=== PATIENT | female | born 1955 | race Caucasian/White ===

== ENCOUNTER → 2020-07-28 11:19 | Outpatient (POV) | payer MEDICARE, OTHER, SELFPAY | PROVIDERS: Visit Provider Dermatology | DX: Z00.00 Encounter for general adult medical examination without abnormal findings (principal) ==

== ENCOUNTER 2021-02-04 10:33 | Emergency (ER) | payer MEDICARE, OTHER, SELFPAY ==
[2021-02-04 10:43] VITALS: BMI 20.3
--- NOTE | 2021-02-04 10:43 | XR_ITS ---
PROCEDURE: XR ELBOW RT MIN 3V CLINICAL INDICATION: INJURY Pain following injury COMPARISON: CR XR FOREARM RT 2V from 02/04/2021 FINDINGS: There is a minimally displaced oblique fracture involving the neck of the radius. The distal fracture fragment is displaced medially by approximately 2 mm. There is displaced anterior fat pad consistent with hemarthrosis. The fracture does not extend into the articular surface. Mid distal aspect of the radius and ulna have an unremarkable appearance. IMPRESSION: Minimally displaced radial neck fracture with hemarthrosis Dictated by: Chay Mishra MD 02/04/2021 11:53 Chay Mishra MD in [place] 02/04/2021 11:53
--- NOTE | 2021-02-04 10:44 | XR_ITS ---
PROCEDURE: XR HUMERUS RT CLINICAL INDICATION: INJURY Pain following injury COMPARISON: No exams were available for comparison FINDINGS: Minimally displaced radial neck fracture is evident as described in the elbow report. The humerus has an unremarkable appearance. The joint spaces are well-preserved. No significant degenerative/arthritic changes. No erosive changes evident. Other findings:None. IMPRESSION: Minimally displaced radial neck fracture. Unremarkable humerus Dictated by: Chay Mishra MD 02/04/2021 11:54 Chay Mishra MD in [place] 02/04/2021 11:54
[2021-02-04 11:00] VITALS: BP 163/85; PULSE 71; RESP 20; TEMP 36.8; O2SAT 98; BMI 20.8
--- NOTE | 2021-02-04 11:17 | HMH.EDUTC ---
[place] Disposition Clinical Impression: Fracture of radial neck Qualifiers: Encounter type: initial encounter Fracture type: closed Fracture alignment: nondisplaced Laterality: right Qualified Code(s): S52.134A - Nondisplaced fracture of neck of right radius, initial encounter for closed fracture Disposition: Home, Self-Care Condition on Discharge: Good Instructions: DI for Forearm Fracture, How To Perform RICE (Rest, Ice, Compress, Elevate) Additional Instructions: *RICE, Rest the extremity, Ice 15-20 minutes 3-4 times daily, Compress- wear the jaron wrap as discussed as much as possible to help reduce swelling and pain, Elevate the extremity when at rest *Jaron wrap/Long arm splint is for support and help control swelling, Be sure that is not to tight but not to loose either *Elevate when resting this will help with swelling and pain *Ibuprofen 600-800mg every 6-8 hours as needed for pain an inflammation. If need something more can take Tylenol in between doses of Ibuprofen to help Immediately follow up with your family doctor for new or worsening of symptoms, or no noticeable improvement over the next 3-[address] Bhandari office will call you with appointment if you have not heard from them by tomorrow you call them Return if needed Straight to ER if any life threatening symptoms Follow up with Family Doctor if needed Straight to ER if any life threatening symptoms Referrals: Savi Rendon [Primary Care Provider] - As needed Rocio Bhandari MD [Physician] - As needed (office will call you with appointment) Time of Disposition: 11:27 Medical Decision Making - Seven Inquiry Pt receiving controlled substance: No Seven was queried for this patient: No Vital Signs: 02/04/21 11:00 02/04/21 11:30 Temperature 98.2 F 98.2 F Temperature Source Oral Pulse Rate 71 Pulse Rate [Left Brachial] 71 Respiratory Rate 20 20 Blood Pressure 163/85 H Blood Pressure [Left Arm] 163/85 H Blood Pressure Mean [Left Arm] 111 Blood Pressure Source [Left Arm] Automatic Cuff Blood Pressure Position [Left Arm] Sitting 02 Sat by Pulse Oximetry 98 Oxygen Delivery Method Room Air - Radiology Data #1 Image(s): Forearm Image Reviewed: Yes I reviewed the patient's radiology image Radial neck fracture #2 Image(s): Elbow Image Reviewed: Yes I reviewed the patient's radiology image radial neck fracture #3 Image(s): Humerus Image Reviewed: Yes I reviewed the patient's radiology image Radial neck fracture noted - Physician Consults Physician Consulted: Thony Time: 11:15 Reason -: Orthopedic Eval/Care Comment/Response: Called Dr Bhandari office and informed them of finding on xray Advised that Dr Bhandari in surgery will notify her when she gets out of surgery and they will call with appointment [place] HPI - General Stated complaint: fell a/o 02/03 1400 hurt right arm Time Seen by Provider: 02/04/21 11:17 Mode of Arrival: Ambulatory Source of Information: Patient Limitations: No Limitations Description of Symptoms (Recalled from Triage Doc. by RN): PATIENT C/O INJURY TO RIGHT ELBOW AREA AFTER TRIPPING OVER A TROUGH AND FALLING YESTERDAY HEENT Symptoms (Recalled from RN notes): No Resp Symptoms (Recalled from RN notes): No Skin Symptoms (Recalled from RN notes): No MS Symptoms (Recalled from RN notes): Yes Functional Status (Recalled from RN notes): WNL - History of Present Illness Provider Complaint: Patient was playing with her grandchild yesterday when she tripped and fell and landed on her right arm State that ever since she has been having some pain in her elbow area when she tries to move or turn her arm States that she thought she may have sprain it but today it was still hurting so she come in to get it checked - Related Data Home Medications Medication Instructions Recorded Confirmed Metoprolol Tartrate [Lopressor 50 mg PO BID 02/04/21 02/04/21 50mg tablet] Trazodone HCl 100 mg PO HS 04
[2021-02-04 11:30] VITALS: BP 163/85; PULSE 71; RESP 20; TEMP 36.8; O2SAT 98
== END 2021-02-04 11:35 | disposition home or self-care (01) ==
PROVIDERS: Emergency Provider Nurse Practitioner; PCP Family Medicine
DX: S52.131A Displaced fracture of neck of right radius, initial encounter for closed fracture (principal); W01.198A Fall on same level from slipping, tripping and stumbling with subsequent striking against other object, initial encounter; Y92.017 Garden or yard in single-family (private) house as the place of occurrence of the external cause; I10 Essential (primary) hypertension; M81.0 Age-related osteoporosis without current pathological fracture; F17.210 Nicotine dependence, cigarettes, uncomplicated; Z88.5 Allergy status to narcotic agent; Z79.899 Other long term (current) drug therapy
CPT/HCPCS: 29105; 73060; 73080; 73090; 99202; G0463

== ENCOUNTER → 2021-02-12 09:24 | Outpatient (CLI) | payer MEDICARE, OTHER, SELFPAY ==
--- NOTE | 2021-02-12 09:30 | XR_ITS ---
PROCEDURE: XR FOREARM RT 2V CLINICAL INDICATION: RT radial head fracture Follow-up fracture COMPARISON: CR XR FOREARM RT 2V from 02/04/2021 FINDINGS: Study is obtained with a posterior splint in place. There is mildly displaced radial neck fracture with 3 mm lateral 2 mm dorsal displacement the proximal fracture fragment. No other significant anomalies are evident. The joint spaces are well-preserved. No significant degenerative/arthritic changes. No erosive changes evident. Other findings:None. IMPRESSION: No change mildly displaced radial neck fracture Dictated by: Chay Mishra MD 02/12/2021 10:47 Chay Mishra MD in [place] 02/12/2021 10:47
== END ==
PROVIDERS: PCP Family Medicine; Visit Provider Orthopaedic Surgery
DX: S52.134A Nondisplaced fracture of neck of right radius, initial encounter for closed fracture (principal)
CPT/HCPCS: 73090

== ENCOUNTER → 2021-02-15 10:27 | Outpatient (CLI) | payer MEDICARE, OTHER, SELFPAY ==
[2021-02-15 11:05] LABS: Basophils # 0.1 K/mm3 (0-0.2); Basophils % 1.1 % (0.1-2.0); Eosinophils # 0.2 K/mm3 (0.0-0.4); Eosinophils % 2.4 % (0.1-12.0); Hematocrit 40.9 % (37.0-47.0); Hemoglobin 13.7 g/dL (12.2-16.2); Lymphocytes # 2.1 K/mm3 (0.7-4.5); Mean Corpuscular HGB Conc 33.6 g/dL (31.8-35.4); Mean Corpuscular Hemoglobin 32.4 pg (27.0-31.2); Mean Corpuscular Volume 96.6 fl (81-99); Mean Platelet Volume 10.2 fl (7.4-10.4); Monocytes # 0.4 K/mm3 (0.1-1.0); Monocytes % 6.2 % (1.7-9.3); Neutrophils # 4.2 K/mm3 (1.8-7.8); Neutrophils % 60.3 % (37.0-80.0); Platelet Count 225 K/mm3 (142-424); Red Blood Count 4.24 M/mm3 (4.20-5.40); Red Cell Distribution Width 12.7 % (11.5-17.5)
[2021-02-15 11:45] LABS: Chloride 101 mmol/L (98-107)
[2021-02-15 11:46] LABS: Potassium 4.3 mmoL/L (3.5-5.1); Sodium 136 mmol/L (136-145)
[2021-02-15 11:49] LABS: Anion Gap 10.3 mEq/L (5-15); Blood Urea Nitrogen 17 mg/dl (7-17); Carbon Dioxide 29 mmol/L (22.0-30.0); Estimated Glomerular Filt Rate 72 ml/min (>60); GFR (African American) 87 ML/MIN (>60); Glucose 98 mg/dl (74-100)
[2021-02-15 11:52] LABS: Coronavirus 19 IgG Antibody Positive (Negative); Coronavirus 19 IgM Antibody Negative (Negative)
== END ==
PROVIDERS: Visit Provider Orthopaedic Surgery
DX: S52.133A Displaced fracture of neck of unspecified radius, initial encounter for closed fracture (principal); Z01.818 Encounter for other preprocedural examination; Z20.822 Contact with and (suspected) exposure to COVID-19
CPT/HCPCS: 36415; 80048; 85025; 86328

== ENCOUNTER 2021-02-16 09:19 | Day surgery (SDC) | payer MEDICARE, OTHER, SELFPAY ==
[2021-02-12 15:08] VITALS: BMI 21.1
[2021-02-16] VITALS (9 sets, daily range): BP systolic 108–138; BP diastolic 55–83; PULSE 54–71; RESP 15–18; TEMP 36.2–36.4; O2SAT 93–99
--- NOTE | 2021-02-16 10:29 | P.PN_ITS ---
[facility] Anesthesia Checklist - Patient Identification Patient Identification: Arm Band - Structural Data Admitted From: Home Planned Operative Procedure/s: ORIF Right Radial Neck Fx Consent for Planned Operative Procedure(s) Verified: Yes Verified Documents: Surgical Consent, History and Physical - NPO Status Verified Time NPO: 00:00 - Additional verifications Anesthesia Reactions: No Hx Blood Transfusions: No Blood Transfusion Reaction: No - Airway Assessment C-Spine Mobility Assessed: Yes (mp2) TMJ Mobility Assessed: Yes Dentition: Good Dentition - Neurological Assessment Level of Consciousness: Awake, Alert - Anesthesia Plan Anesthesia Risk discussed: Yes Anesthesia Plan: Verified ASA Class: II Anesthesia Type: General w/block (supraclavicular nerve block. Risks/benefits explained, pt verbalizes understanding) [facility] History I have reviewed the patient's past medical history: Yes Medical History: Reports:: Cancer, Osteoporosis Denies:: Diabetes Mellitus Type 1, Diabetes Mellitus Type 2, MRSA, Seizures *Have you ever received a pneumonia vaccine?: Yes *Have you received a flu vaccine this season?: Yes Other Medical History: Reports: Arthritis, Osteoporosis, Other. Denies: Blood Transfusion Reaction Anesthesia experience/problems:: nac Laterality Cases: Bilateral: Cataract Other Surgeries: Yes: Cardiac Surgery Amputation: No Fractures: No - *Social History Last grade of school completed: High school graduate Smoking Status: Current every day smoker Tobacco Type: cigarettes # Packs/Day (cigarettes): 1 Alcohol Intake: never Substance Use Type: denies use *Occupational Status:: other Housing: house *Travel in the last 8 weeks: None Family Hx:: Coronary Artery Disease, Cancer
--- NOTE | 2021-02-16 13:39 | XR_ITS ---
PROCEDURE: XR ELBOW RT 2V CLINICAL INDICATION: ORIF RT ELBOW FX COMPARISON: No exams were available for comparison FINDINGS: Fluoroscopy time: 1.1 minute. Multiple images submitted with the C-arm demonstrates lateral bone plate placed at the proximal radius stabilizing the radial neck fracture with good alignment. IMPRESSION: Good alignment status post ORIF radial neck fracture Dictated by: Chay Mishra MD 02/16/2021 18:12 Chay Mishra MD in [place] 02/16/2021 18:12
--- NOTE | 2021-02-16 14:07 | P.PN_ITS ---
[facility] Anesthesia Record Part I Intake, IV Amount: 800 Estimated blood loss (mL): 50 Urine output (mL): 0 Blood Pressure: 117/65 SaO2: 95 Pulse Rate: 71 Respiratory Rate: 15 Temperature: 97.1 F Patient is:: Awake, Stable Stable to PACU at:: 14:03
--- NOTE | 2021-02-16 14:28 | XR_ITS ---
PROCEDURE: XR ELBOW RT 2V CLINICAL INDICATION: ORIF Follow-up ORIF/fracture COMPARISON: CR XR ELBOW RT MIN 3V from 02/04/2021 FINDINGS: AP and lateral views demonstrate a lateral bone plate having been placed at the proximal radius with good alignment of the radial neck fracture. There is a posterior splint in place. The joint spaces are well-preserved. No significant degenerative/arthritic changes. No erosive changes evident. Other findings:None. IMPRESSION: Good alignment status post radial neck fracture ORIF Dictated by: Chay Mishra MD 02/16/2021 15:19 Chay Mishra MD in [place] 02/16/2021 15:19
--- NOTE | 2021-02-16 23:12 | HMH.OPNOTE ---
Date of procedure: 02/16/21 Pre-op Diagnosis:: R radial neck fracture Post-op Diagnosis:: R radial neck fracture Procedure performed:: open reduction internal fixation (ORIF) R radial neck fracture Surgeon:: Rocio Bhandari MD Rugby League Footballer(s):: Celeste Srivastava AVIATION ELECTRONICS TECHNICIAN:: Yong Dumont Anesthesia: MAC, regional (supraclavicular nerve block) Estimated blood loss (mL): 20 Clinical Note:: 65-year-old [id number] female who sustained an injury to the right elbow on 02/03/2021 while playing with her granddaughter. She tripped over some debris in a gutter and fell onto the outstretched right arm, with immediate pain in the elbow. She was seen in the emergency department where a radial neck fracture was diagnosed and she was placed into a splint. No open wounds around the elbow, no numbness or tingling in the arm. She has not injured this arm previously and has had no prior surgeries on this arm. We tried initial conservative treatment with immobilization in a splint for a week, but alignment appeared slightly worsened at subsequent follow-up. Specifically, angulation on AP view is around 40 degrees, which I believed to be outside of the acceptable range for continued nonoperative treatment. I recommend surgical fixation, particularly ORIF with plate and screws. I believe this will improve the alignment and overall long-term function and pain level for the patient, who is healthy and very active. This is also her dominant arm. She is a non-smoker and is in good health. I discussed the risks and benefits of surgery, which include but are not limited to: bleeding, infection, neurovascular damage, risk of heterotopic ossification, postoperative stiffness, radial ulnar synostosis, nonunion, malunion, and need for revision surgery with possible conversion to radial head replacement in the future. The patient vocalized understanding and provided informed consent for the procedure. Operative findings:: IMPLANTS: [employer] PROTEAN R radial head plate 6 screws -- 2.7mm non-locking x2/locking x1; 2.3mm locking x3 Operative note:: The patient was identified in preoperative holding and the right elbow signed by myself. Consent was reviewed and verified with the patient, all questions answered. Anesthesia discussed options with the patient, who chose peripheral nerve block with sedation. Supraclavicular nerve block was performed on the right upper extremity in pre-operative holding by anesthesia. The patient was then taken to the operating room, where she was placed supine on the operative table and the right upper extremity placed on an attached hand table. All bony prominences on the left upper and bilateral lower extremities were well-padded. 1 g cefazolin was infused intravenously and sedation was administered. Once the patient was asleep, splint was removed from the right arm and it was prepped and draped in the usual sterile fashion. Once the arm was draped, a sterile tourniquet was placed on the upper right arm. Timeout was then performed, identifying the correct patient, correct procedure, and correct site. The procedure was begun by elevating the right arm for 3 minutes and then elevating the tourniquet to 250 mmHg. Esmarch was not used in order to allow some blood to remain in the vasculature and increase visualization of the penetrating veins along the desired surgical interval. Next, an oblique incision was made over the lateral aspect of the right elbow, centered over the lateral column of the humerus and the radiocapitellar joint. This measured approximately 5 cm long. Skin was incised only; after this subcutaneous tissue was bluntly dissected with tenotomy scissors, spreading tissue until the common extensor origin on the lateral epicondyle was identified. The Argueta approach was utilized, and the intermuscular plane between the EDC and ECRL was developed. Blunt retractor was used to aid with exposure, and care was taken to minimize the
[2021-02-18 07:38] VITALS: BP 127/73; PULSE 62; TEMP 36.2
--- NOTE | 2021-02-18 07:38 | P.PN_ITS ---
[facility] Anesthesia Record Part II Discharge Time: 14:30 Destination: Surgical Day Care (OP Surgery) PACU nurse assessment reviewed?: Yes Patient Condition:: Good Anesthesia Complications:: None Swallowing reflex intact?: Yes Cyanosis?: No Blood Pressure: 127/73 Pulse Rate: 62 Temperature: 97.1 F Mental Status: Alert & Oriented Pain level:: 0 Nausea and/or vomitting:: None Intake, IV Amount: 800
== END 2021-02-16 16:35 | disposition home or self-care (01) ==
LOC: OR 09:23
PROVIDERS: PCP Family Medicine; Visit Provider Orthopaedic Surgery
PROC: (CPT 25515; principal; 2021-02-16 11:00)
DX: S52.121A Displaced fracture of head of right radius, initial encounter for closed fracture (principal); W01.0XXA Fall on same level from slipping, tripping and stumbling without subsequent striking against object, initial encounter
CPT/HCPCS: 24665; 73070; 76000; 96374; C1713; C1776

== ENCOUNTER → 2021-02-26 10:16 | Outpatient (CLI) | payer MEDICARE, OTHER, SELFPAY ==
--- NOTE | 2021-02-26 10:21 | XR_ITS ---
PROCEDURE: XR ELBOW RT 2V CLINICAL INDICATION: post op: Rt radial head fracture COMPARISON: CR XR ELBOW RT MIN 3V from 02/04/2021 CR XR ELBOW RT 2V from 02/16/2021 FINDINGS: Lateral bone plate remains in place stabilizing the radial neck fracture which is in good alignment. Fracture line is still visible. Posterior splint is removed. The joint spaces are well-preserved. No significant degenerative/arthritic changes. No erosive changes evident. Other findings:None. IMPRESSION: Good alignment status post radial neck fracture. Dictated by: Chay Mishra MD 02/26/2021 10:48 Chay Mishra MD in [place] 02/26/2021 10:48
== END ==
PROVIDERS: PCP Family Medicine; Visit Provider Orthopaedic Surgery
DX: S52.131A Displaced fracture of neck of right radius, initial encounter for closed fracture (principal)
CPT/HCPCS: 73070

== ENCOUNTER 2021-02-26 11:54 | Outpatient (RCR) | payer MEDICARE, OTHER, SELFPAY | END 2021-02-26 12:20 | disposition home or self-care (01) | LOC: OT 11:54 | PROVIDERS: Visit Provider Orthopaedic Surgery | DX: S52.134A Nondisplaced fracture of neck of right radius, initial encounter for closed fracture (principal) | CPT/HCPCS: 97763 ==

== ENCOUNTER → 2021-03-15 09:49 | Outpatient (CLI) | payer MEDICARE, OTHER, SELFPAY ==
--- NOTE | 2021-03-15 09:52 | XR_ITS ---
PROCEDURE: XR ELBOW RT MIN 3V CLINICAL INDICATION: s/p RT radial neck fracture COMPARISON: CR XR ELBOW RT MIN 3V from 02/04/2021 CR XR ELBOW RT 2V from 02/16/2021 CR XR ELBOW RT 2V from 02/26/2021 FINDINGS: Status post ORIF radial neck fracture with lateral bone plate and good alignment. Callus formation is developing. Fracture line is still visible. The joint spaces are well-preserved. No significant degenerative/arthritic changes. No erosive changes evident. Other findings:None. IMPRESSION: S/p ORIF healing radial neck fracture with good alignment Dictated by: Chay Mishra MD 03/15/2021 10:34 Chay Mishra MD in [place] 03/15/2021 10:34
== END ==
PROVIDERS: PCP Family Medicine; Visit Provider Orthopaedic Surgery
DX: S52.134A Nondisplaced fracture of neck of right radius, initial encounter for closed fracture (principal)
CPT/HCPCS: 73080

== ENCOUNTER 2021-04-29 11:00 | Outpatient (RCR) | payer MEDICARE, OTHER, SELFPAY ==
--- NOTE | 2021-03-01 15:04 | HMH.OTOPEV ---
OT Inpatient Evaluation Rehab OT Outpatient Eval Start: 03/01/21 14:46 Freq: Status: Active Protocol: Document 03/01/21 14:46 FRANCHESCASTEVIE (Rec: 03/01/21 15:04 [id number]) Electronically Signed By Breanna Grijalva OT 03/01/21 14:46 Outpatient Therapy Subjective History Subjective History Date of procedure: 02/16/21 Pre-op Diagnosis:: R radial neck fracture Post-op Diagnosis:: R radial neck fracture Procedure performed:: open reduction internal fixation (ORIF) R radial neck fracture Surgeon:: Rocio Bhandari MD Grid Maker(s):: Celeste Srivastava PRICE CHANGER:: Yong Dumont Anesthesia: MAC, regional ( supraclavicular nerve block) Estimated blood loss (mL): 20 Clinical Note:: 65-year-old right-hand- dominant female who sustained an injury to the right elbow on 02/03/2021 while playing with her granddaughter. She tripped over some debris in a gutter and fell onto the outstretched right arm, with immediate pain in the elbow. She was seen in the emergency department where a radial neck fracture was diagnosed and she was placed into a splint. No open wounds around the elbow, no numbness or tingling in the arm. She has not injured this arm previously and has had no prior surgeries on this arm. We tried initial conservative treatment with immobilization in a splint for a week, but alignment appeared slightly worsened at subsequent follow-up. Specifically, angulation on AP view is around 40 degrees, which I believed to be outside of the acceptable range for c
--- NOTE | 2021-04-02 12:10 | HMH.RHREAS ---
Rehab Reassessment Rehab OP Re-assessment Start: 04/02/21 11:48 Freq: Status: Active Protocol: Document 04/02/21 11:48 BRENDA (Rec: 04/02/21 11:53 [facility] [id number]) Electronically Signed By Breanna Grijalva OT 04/02/21 11:48 Rehab Re-assessment Subjective Subjective My elbow is feeling better. Objective Objective Notes Since SOC, Patient has participated well in skilled OP OT services for s/p R radial head fx with hinged elbow brace locked at 90 degrees til 4 weeks per protocol. Patient is currently 6 weeks out and will currently be weaning off hinged elbow brace 3-4 hours at a time while at home. Patient has been educated to continue to wear brace out in public for protection. Manual therapeutic task completed for gentle stretching/massage to improve AROM. Thera exer tasks completed for improving elbow and cv rn strength. Thera act tasks completed to improve endurance and overall movement of AROM/AAROM. Modalities as appropriate to decrease pain. Assessment Progress Assessment Progressing as Expected Assessment Notes Evaluation on 03/01/21 3/10 pain at worst in elbow R elbow ext:50 R elbow flex:122 pronation:90 supination:50 2+/5 elbow strength throughout L cv rn strength:40# R cv rn strength: 20# Re-assessment on 04/02/21 0/10 pain at worst R elbow ext:20 R elbow flex:132 R pronation: 90 R supination: 60 -4/5 elbow strength throughout R cv rn strength:30 L cv rn strength:50 Patient goals met All STGs met. Upgraded goals. Goals Not Met N/a Revised Goals Re-assessment on 04/02/21 0/10 pain at worst
== END 2021-04-29 11:05 | disposition home or self-care (01) ==
LOC: OT 11:00
PROVIDERS: PCP Family Medicine; Visit Provider Orthopaedic Surgery
DX: S52.134D Nondisplaced fracture of neck of right radius, subsequent encounter for closed fracture with routine healing (principal)
CPT/HCPCS: 97010; 97014; 97035; 97110; 97140; 97164; 97165; 97530; G0283

== ENCOUNTER → 2021-04-30 09:14 | Outpatient (CLI) | payer MEDICARE, OTHER, SELFPAY ==
--- NOTE | 2021-04-30 09:19 | XR_ITS ---
PROCEDURE: XR ELBOW RT MIN 3V CLINICAL INDICATION: s/p ORIF R radial neck fracture COMPARISON: CR XR ELBOW RT MIN 3V from 02/04/2021 CR XR ELBOW RT 2V from 02/16/2021 CR XR ELBOW RT 2V from 02/26/2021 CR XR ELBOW RT MIN 3V from 03/15/2021 FINDINGS: Lateral bone plate once again noted at the proximal radius region with multiple cortical screws not significantly changed. There is good alignment of the proximal radial fracture. No other significant anomalies. Other findings:None. IMPRESSION: No change good alignment proximal radial fracture/ORIF Dictated by: Chay Mishra MD 04/30/2021 10:02 Chay Mishra MD in [place] 04/30/2021 10:02
--- NOTE | 2021-04-30 10:29 | XR_ITS ---
PROCEDURE: XR WRIST RT MIN 3V CLINICAL INDICATION: RT wrist pain COMPARISON: No exams were available for comparison FINDINGS: No fracture or dislocation. No lytic or blastic change. There is normal mineralization. The joint spaces are well-preserved. No significant degenerative/arthritic changes. No erosive changes evident. Other findings:None. IMPRESSION: No acute findings. Dictated by: Chay Mishra MD 04/30/2021 11:56 Chay Mishra MD in [place] 04/30/2021 11:56
== END ==
PROVIDERS: PCP Family Medicine; Visit Provider Orthopaedic Surgery
DX: S52.133A Displaced fracture of neck of unspecified radius, initial encounter for closed fracture (principal); M25.531 Pain in right wrist
CPT/HCPCS: 73080; 73110

== ENCOUNTER → 2021-05-13 12:38 | Outpatient (CLI) | payer MEDICARE, OTHER, SELFPAY ==
--- NOTE | 2021-05-13 12:39 | MR_ITS ---
PROCEDURE INFORMATION: Exam: MR Right Upper Extremity Joint Without Contrast; Wrist Exam date and time: 05/13/2021 12:39 PM Age: 65 years old Clinical indication: Pain; Wrist; Right; Additional info: Evaluate for a cyst/ tumor. Knot on anterior ulnar aspect of wrist, fall 3 months ago, painful to touch, marker placed on wrist. TECHNIQUE: Imaging protocol: MR of the Right upper extremity without contrast. Exam focused on the wrist. COMPARISON: 1. CR XR WRIST RT MIN 3V 04/30/2021 10:53 AM 2. CR XR FOREARM RT 2V 02/12/2021 9:38 AM 3. CR XR FOREARM RT 2V 02/04/2021 10:50 AM FINDINGS: Limitations: Motion artifact. Bones and cartilage: There is no acute fracture or dislocation. No aggressive bone lesions are present. Joint spaces: There is moderate primary osteoarthritis of the thumb carpometacarpal joint. Mild effusions involve the intercarpal and distal radioulnar joints. Scapholunate ligament: Unremarkable. No tear. Lunotriquetral ligament: Unremarkable. No tear. Triangular fibrocartilage complex: Unremarkable. No tear. Flexor compartment tendons: Unremarkable. No tear. Extensor compartment tendons: Trace tenosynovitis involves the tendons of the second extensor compartment (extensor carpi radialis longus, extensor carpi radialis brevis) and fourth extensor compartment (extensor digitorum, extensor indicis). Muscles: Unremarkable. No acute abnormality. Soft tissues: The skin marker overlies the pisiform bone along the volar ulnar side of the wrist. Between the pisiform bone in the skin marker there is intermediate density soft tissue in the subcutaneous fat that has a nonspecific appearance. IMPRESSION: 1. Marker indicating the symptomatic region along the volar ulnar aspect of the wrist corresponds to nonspecific intermediate density soft tissue between the pisiform bone and skin. In the setting of prior trauma, this could represent posttraumatic changes of the soft tissues. There is no underlying fracture of the pisiform bone. 2. Moderate primary osteoarthritis of the thumb carpometacarpal joint. 3. Trace tenosynovitis involving the tendons of the second and fourth extensor compartments.
== END ==
PROVIDERS: PCP Family Medicine; Visit Provider Orthopaedic Surgery
DX: M25.531 Pain in right wrist (principal)
CPT/HCPCS: 73221

== ENCOUNTER → 2021-06-29 10:45 | Outpatient (POV) | payer MEDICARE, OTHER, SELFPAY | PROVIDERS: Visit Provider Dermatology | DX: Z00.00 Encounter for general adult medical examination without abnormal findings (principal) ==

== ENCOUNTER → 2022-04-12 07:56 | Outpatient (POV) | payer MEDICARE, OTHER, SELFPAY | PROVIDERS: Visit Provider Dermatology | DX: Z00.00 Encounter for general adult medical examination without abnormal findings (principal) ==

== ENCOUNTER → 2022-07-12 12:14 | Outpatient (CLI) | payer MEDICARE, OTHER, SELFPAY | PROVIDERS: PCP Family Medicine; Visit Provider Internal Medicine Gastroenterology | DX: Z01.818 Encounter for other preprocedural examination (principal); Z20.822 Contact with and (suspected) exposure to COVID-19; Z12.11 Encounter for screening for malignant neoplasm of colon | CPT/HCPCS: C9803; U0003; U0005 ==

== ENCOUNTER 2022-07-14 08:21 | Day surgery (SDC) | payer MEDICARE, OTHER, SELFPAY ==
[2022-07-11 13:07] VITALS: BMI 22.1
[2022-07-14 08:41] VITALS: BP 178/84; PULSE 65; RESP 17; TEMP 36.7; O2SAT 98
[2022-07-14 09:24] VITALS: O2SAT 98
--- NOTE | 2022-07-14 09:41 | HMH.SCOPE ---
Procedure: Date: 07/14/22 Patient Date of :: 1955 Procedure Performed:: Colonoscopy with polypectomy with snare Indications:: +Cologuard Performing Provider:: Clarence Jacobson MD Referring Provider:: Savi Rendon Sedation:: Propofol Procedure:: After placing the patient in the left lateral decubitus position, the colonoscopy was gently inserted into the rectum and under direct visualization advanced to the cecum which was identified by transillumination in the right lower quadrant, identification of the ileocecal valve, appendiceal orifice, and cecal strap. Color, texture, mucosa, and anatomy of the colon were carefully examined with the scope. Findings:: Anal canal: normal Rectum: normal Sigmoid colon: normal without polyps or inflammatory changes, small 0.3 cm polyp identified and removed with snare. Descending colon: normal without polyps or inflammatory changes Splenic flexure: normal Transverse colon: normal without polyps or inflammatory changes Hepatic flexure: normal Ascending colon: normal without polyps or inflammatory changes Cecum: normal Terminal ileum: not visualized Specimens:: Sigmoid polyp Recommendations:: Follow up exam in about FIVE years or so Complications:: None Estimated blood obtained (mL): 0
[2022-07-14 09:47] VITALS: BP 130/71; PULSE 64; RESP 18; TEMP 36.1; O2SAT 97
[2022-07-14 10:00] VITALS: BP 139/76; PULSE 60; RESP 18; O2SAT 95
[2022-07-14 10:10] VITALS: BP 155/81; PULSE 62; RESP 18; O2SAT 96
--- NOTE | 2022-07-14 13:50 | EXP.ANES.CKL ---
PFSH PFS Medical History Anxiety Breast cancer Bronchitis Cataract Heart murmur Hemorrhoid History of back pain History of cataract HTN (hypertension) Hx of mitral valve disease Osteoarthritis Pneumonia Scoliosis Sinus headache Skin cancer Sleep apnea Urinary tract infection Surgical History History of partial hysterectomy Hx of appendectomy Hx of chest tube placement Hx of elbow surgery Hx of shoulder surgery Hx of tubal ligation Family History Father Heart attack Mother COPD (chronic obstructive pulmonary disease) Social History Smoking Status: Current every day smoker tobacco type: cigarettes packs per day: 1 years smoked: 40 smoking status stop date: 2019 alcohol intake: never substance use type: denies use current occupational status: retired Travel in the last 8 weeks: None housing: house caffeine: Yes [facility] Anesthesia Checklist Patient Identification Patient Identification: Arm Band and Family Structural Data Admitted From: Direct Admit Planned Operative Procedure/s: colonoscopy Consent for Planned Operative Procedure(s) Verified: Yes Verified Documents: Surgical Consent NPO Status Verified Time NPO: 00:00 Additional verifications Anesthesia Reactions: No Hx Blood Transfusions: No Blood Transfusion Reaction: No Cardiovascular Assessment Heart Sounds: S1 & S2 Airway Assessment Dentition: Good Dentition Neurological Assessment Level of Consciousness: Awake, Alert, Appropriate and Follows Commands Hx Seizures: No Genitourinary Assessment Voided functional tester typewriters to O.R.: Yes Anesthesia Plan Anesthesia Risk discussed: Yes ASA Class: II Anesthesia Type: MAC
== END 2022-07-14 10:30 | disposition home or self-care (01) ==
PROVIDERS: PCP Family Medicine; Visit Provider Internal Medicine Gastroenterology
PROC: 0DJD8ZZ Inspection of Lower Intestinal Tract, Via Natural or Artificial Opening Endoscopic (ICD-10-PCS; CPT 45378; principal; 2022-07-14 09:30)
DX: R19.5 Other fecal abnormalities (principal); K63.5 Polyp of colon; Z79.899 Other long term (current) drug therapy; Z72.0 Tobacco use
CPT/HCPCS: 45385; 88305

== ENCOUNTER 2022-09-03 10:45 | Emergency (ER) | payer MEDICARE, OTHER, SELFPAY ==
--- NOTE | 2022-09-03 11:04 | EXP.UTC ---
Discharge Plan Disposition Patient Disposition: Home, Self-Care Condition: Good Prescriptions Prescriptions: New phenazopyridine [Pyridium] 200 mg tablet 200 mg PO Q8H Qty: 6 0RF nitrofurantoin monohyd/m-cryst [Macrobid] 100 mg Capsule 100 mg PO BID Qty: 10 0RF Rx Instructions: must administer with a meal/food ondansetron 4 mg Tablet,Disintegrating 4 mg PO Q8H PRN (Reason: Nausea) Qty: 12 0RF No Action trazodone 100 MG tablet 100 mg PO HS metoprolol tartrate 50 MG tablet 50 mg PO DAILY venlafaxine 75 MG tablet extended release 24hr 75 mg PO DAILY anastrozole 1 mg Tablet 1 mg PO DAILY Referrals Follow up/Referrals: Savi Rendon [Primary Care Provider] - See instructions Activity Restrictions/Add. Instructions Additional Instructions/Restrictions: Drink plenty of fluids. Take tylenol or ibuprofen for pain or fever. Take the medications as directed. Follow up with your regular doctor. GO TO THE ER FOR ANY WORSENING SYMPTOMS The pyridium will make your urine turn orange, this is an expected side effect. It will stain your clothes if it comes into contact with them. We will culture the urine. That will tell what bacteria is causing your infection and which antibiotics will treat it best. Sometimes the first antibiotic we prescribe turns out to not work against different bacteria. So, make sure you follow up within 3 days if you are not getting better. Clinical Impressions Clinical Impression: UTI (urinary tract infection) Instructions Patient Instructions: Urine Culture, DI for Urinary Tract Infection (UTI), Phenazopyridine Discharge ED Provider: Andrzej Ruiz [facility] General Stated complaint: possible UTI Time Seen by Provider: 09/03/22 11:04 History of Present Illness Provider Complaint: She states that for the past 2 days she has been having worsening dysuria, frequency, and low back pain. She states that she has a UTI. Related Data Home Medications Medication Instructions Recorded Confirmed metoprolol tartrate 50 mg tablet 50 mg PO DAILY MITRAL VALVE 02/04/21 07/14/22 trazodone 100 mg tablet 100 mg PO HS Insomnia 02/04/21 07/14/22 venlafaxine 75 mg tablet,extended 75 mg PO DAILY Anxiety 02/04/21 07/14/22 release 24 hr anastrozole 1 mg tablet 1 mg PO DAILY BREAST CANCER 07/11/22 07/14/22 Previous Rx's Medication Instructions Recorded nitrofurantoin 100 mg PO BID #10 caps 09/03/22 monohydrate/macrocrystals 100 mg capsule (Macrobid) ondansetron 4 mg disintegrating 4 mg PO Q8H PRN Nausea #12 tabs 09/03/22 tablet phenazopyridine 200 mg tablet 200 mg PO Q8H 6 doses #6 tabs 09/03/22 (Pyridium) Allergies Allergy/AdvReac Type Severity Reaction Status Date / Time codeine Allergy NAUSEA / Verified 09/03/22 11:17 VOMITING PFSH PFSH Medical History Anxiety Breast cancer Bronchitis Cataract Heart murmur Hemorrhoid History of back pain History of cataract HTN (hypertension) Hx of mitral valve disease Osteoarthritis Pneumonia Scoliosis Sinus headache Skin cancer Sleep apnea Urinary tract infection Surgical History History of partial hysterectomy Hx of appendectomy Hx of chest tube placement Hx of elbow surgery Hx of shoulder surgery Hx of tubal ligation Family History Father Heart attack Mother COPD (chronic obstructive pulmonary disease) Social History Smoking Status: Current every day smoker tobacco type: cigarettes packs per day: 1 years smoked: 40 smoking status stop date: 2019 alcohol intake: never substance use type: denies use current occupational status: retired Travel in the last 8 weeks: None housing: house caffeine: Yes ROS Obtained: Yes All sy
[2022-09-03 11:10] LABS: Apearance,Urine Clear (Clear); Color,Urine Yellow (Yellow)
[2022-09-03 11:11] LABS: Bilirubin,Urine Negative (Negative); Blood, Urine Negative (Negative); Glucose,Urine (UA) Negative (Negative); Ketones,Urine Negative (Negative); Protein,Urine Negative (Negative); UTC Leukocyte Esterase,Urine Trace (Negative); UTC Nitrate,Urine Negative (Negative); Urobilinogen,Urine 0.2 EU/dl (0.2)
[2022-09-03 11:15] VITALS: BP 127/86; PULSE 71; RESP 19; TEMP 36.8; O2SAT 98; BMI 21.4
[2022-09-03 11:57] VITALS: BP 127/86; PULSE 71; RESP 19; TEMP 36.8
== END 2022-09-03 11:59 | disposition home or self-care (01) ==
PROVIDERS: Emergency Provider Nurse Practitioner Family; PCP Family Medicine
DX: N39.0 Urinary tract infection, site not specified (principal)
CPT/HCPCS: 81003; 87086; 99212; G0463